=== PATIENT | female | born 1975 | race American Indian/Alaskan Native ===

== ENCOUNTER 2017-11-07 15:52 | Outpatient (CLI) | payer BC ==
--- NOTE | 2017-11-10 08:26 | Magnetic Resonance Report ---
FINAL REPORT EXAM: MR LE JOINT LT WO CON HISTORY: LEFT ANKLE TENDON TEAR TECHNIQUE: Fat sensitive and fluid sensitive MR sequences of the ankle were performed in sagittal, axial and coronal planes. PRIORS: None. FINDINGS: There is an osteochondral lesion involving the medial aspect of the talar dome. I do not identify a a displaced bony osteochondral fragment. There is a somewhat amorphous appearance of the tibiotalar ligament. There loss of the normal striations. This appears to involve mostly the anterior tibiotalar ligament. While findings are concerning for tear involving the anterior tibiotalar ligament, posterior tibiotalar ligament appears mostly intact. There is only a mild amount of edema in this area. This could be chronic or subacute. There is, however, some subcutaneous edema superficial to the medial malleolus. The lateral ligaments appear intact. Peroneal tendons appear intact. The posterior tibial, flexor digitorum and flexor hallucis tendons appear intact. Achilles tendon is unremarkable. There is focal signal abnormality in mid navicular bone of uncertain significance in etiology. Correlate with plain radiographs. IMPRESSION: Osteochondral lesion involving medial talar dome. Concern for tear involving anterior tibiotalar ligament which is of unknown age. There is a lesion in the mid navicular bone of uncertain significance in etiology. Correlate with plain radiographs. Visualized ankle tendons appear intact.
== END 2017-11-07 15:53 | disposition home or self-care (01) ==
LOC: MRI 15:52
PROVIDERS: ATTEND Family Medicine
DX: S93.432A Sprain of tibiofibular ligament of left ankle, initial encounter (principal); Z91.013 Allergy to seafood; X58.XXXA Exposure to other specified factors, initial encounter; Y93.89 Activity, other specified; Y92.89 Other specified places as the place of occurrence of the external cause; Y99.8 Other external cause status
CPT/HCPCS: 73721

== ENCOUNTER 2021-07-31 15:41 | Outpatient (CLI) | payer BC ==
--- NOTE | 2021-07-31 17:55 | XRay Report ---
RIGHT KNEE 3 VIEW(S) INDICATION / CLINICAL INFORMATION: RIGHT KNEE PAIN M25.561 COMPARISON: None available. FINDINGS: BONES / JOINT(S): No acute fracture or subluxation. 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 ADDITIONAL FINDINGS: None. LEFT KNEE 3 VIEW(S) INDICATION / CLINICAL INFORMATION: RIGHT KNEE PAIN M25.561 COMPARISON: None available. FINDINGS: BONES / JOINT(S): No acute fracture or subluxation. Mild tricompartmental degenerative arthrosis SOFT TISSUES: No significant abnormality. ADDITIONAL FINDINGS: None. Signer Name: Shawn Swanson MD Signed: 07/31/2021 5:51 PM Workstation Name: [id number]
== END 2021-07-31 15:42 | disposition home or self-care (01) ==
LOC: XRAY 15:41
PROVIDERS: ATTEND Orthopaedic Surgery
DX: M17.0 Bilateral primary osteoarthritis of knee (principal)